=== PATIENT | male | born 1960 | race Caucasian/White ===

== ENCOUNTER 2017-08-11 01:18 | Emergency (ER) | payer OTHER ==
[2017-08-11] MEDS ORDERED: NS 1,000 ML IV ONE (01:22)
[2017-08-11] MEDS ORDERED: ONDANSETRON 4 MG/2 ML VIAL IVP ONE (01:22)
[2017-08-11] MEDS ORDERED: HYDROmorphONE/DILAUDID 2 MG/ML INJ IVP ONE ×2 (01:22→03:26)
--- NOTE | 2017-08-11 01:27 | EDPHY ---
H & P Stated Complaint: lower back pain Time Seen by Provider: 08/11/17 01:24 HPI/ROS: HPI CHIEF COMPLAINT: Low back pain. Radiating down right leg. HISTORY OF PRESENT ILLNESS: Patient 56-year-old male, history of hypertension, obesity, diabetes, [id number], as well as chronic low back pain, presents emergency room with low back pain that radiates down his right leg. This been progressively getting worse over the past 8 days. Patient reports to me that he has had increasing pain for the past 8 days the pain as sharp stabbing radiates down his right leg. Worse when he walks. He denies any saddle anesthesia denies focal numbness or tingling, denies fever. Denies history of trauma. States his pain is been increasing for the past 8 days. He did see [facility] and had an MRI on Thursday but is unsure the results of this. He cannot tolerate the pain and states the pain got worse around midnight. He was transported by EMS here he was given 200 mcg IV fentanyl in route. Which improved his pain from 10/10 to currently 8/10. Denies any significant trauma. Past Medical History: Hypertension, jxo-[id number] diabetes, obesity, chronic back pain Past Surgical History: No significant surgery Social History: Denies daily use of drugs alcohol tobacco. Resides here locally. Family History: Noncontributory ROS REVIEW OF SYSTEMS: A comprehensive 10 point review of systems is otherwise negative aside from elements mentioned in the history of present illness. Exam Constitutional triage nursing summary reviewed, vital signs reviewed, awake/ alert. Eyes normal conjunctivae and sclera, EOMI, PERRLA. HENT normal inspection, atraumatic, moist mucus membranes, no epistaxis, neck supple/ no meningismus, no raccoon eyes. Respiratory clear to auscultation bilaterally, normal breath sounds, no respiratory distress, no wheezing. Cardiovascular rate normal, regular rhythm, no murmur, no edema, distal pulses normal. Gastrointestinal soft, non-tender, no rebound, no guarding, normal bowel sounds, no distension, no pulsatile mass. Genitourinary no CVA tenderness. Musculoskeletal no significant midline lumbar pain, no midline vertebral tenderness, full range of motion, no calf swelling, no tenderness of extremities , no meningismus, good pulses, neurovascularly intact. He does have some mild pain with straight leg raise. Negative for crossed straight leg raise. Skin pink, warm, & dry, no rash, skin atraumatic. Neurologic awake, alert and oriented x 3, AAOx3, moves all 4 extremities equally, motor intact, sensory intact, CN II-XII intact, normal cerebellar, normal vision, normal speech. Psychiatric normal mood/affect. Heme/Lymph/Immune no lymphadenopathy. Differential Diagnosis: Includes but is not limited to in a particular order sciatica, nerve root compression, annular tear, compression fracture, degenerative disc disease, malalignment, doubt acute spinal epidural abscess. Medical Decision Making: Plan for this patient lumbar spine x-ray, IV pain medicine with IV Dilaudid 0.5 mg IV, 4 mg IV Zofran for nausea, basic blood work and fluid. Re-evaluate. Re-evaluation: X-ray lumbar spine shows degenerative disc disease. No acute malalignment or significant compression fracture. 0327: Patient re-evaluate he still complaining of back pain it is slightly improved but still rather significant the pain shoots down his right leg. I talked him about re-medication including Dilaudid, Toradol, Decadron. He would like to do this. We discussed possible admission for intractable back pain. Versus going home. He would like to see if his pain can be better controlled here before making that decision. 0528: Patient re-evaluated resting comfortably in no acute distress. He is feeling much better after IV Toradol Decadron and Dilaudid. He was able to ambulate well to the bathroom with a steady gait and no significant back pain. He states his back pain greatly improved. Patient requesting discharge home. He does report to me that he has a follow-up appoint with his orthopedic doctor today at 11:00 a.m. To review his outside MRI. I will prescribe him a very limited supply of [place] so that he is comfortable today. He should follow up with his orthopedic surgeon take it easy. We discussed return precautions as well. He understands return emergency room if develops any worsening pain questions or concerns. Source: Patient, EMS - Personal History Current Tetanus/Diphtheria Vaccine: Yes - Medical/Surgical History Hx Asthma: No Hx Chronic Respiratory Disease: No Hx Diabetes: No Hx Cardiac Disease: No Hx Renal Disease: No Hx Cirrhosis: No Hx Alcoholism: No Hx HIV/AIDS: No Hx Splenectomy or Spleen Trauma: No Other PMH: HTN, DM2 - Social History Smoking Status: Never smoked Constitutional: Initial Vital Signs Temperature (C) 36.6 C 08/11/17 01:21 Heart Rate 74 08/11/17 01:21 Respiratory Rate 20 08/11/17 01:21 Blood Pressure 177/121 H 08/11/17 01:21 O2 Sat (%) 92 08/11/17 01:21 O2 Delivery Mode Nasal Cannula O2 (L/minute) 2 Allergies/Adverse Reactions: No Known Allergies Allergy (Unverified 08/11/17 01:23) Home Medications: Medication Instructions Recorded Hydrocodone-Acetamin 5-325 mg 08/11/17 Hydrocodone/APAP 5/325 [[place] 1 - 2 tab PO Q4H PRN #10 tab 08/11/17 5/325] Lisinopril 08/11/17 Metformin HCl 08/11/17 predniSONE 08/11/17 Medical Decision Making - Data Points Laboratory Results: Laboratory Results 08/11/17 01:39 08/11/17 01:39 08/11/17 08/11/17 08/11/17 02:52 02:31 01:39 WBC RBC Hgb Hct MCV MCH MCHC RDW Plt Count MPV Neut % (Auto) Lymph % (Auto) [place] % (Auto) Eos % (Auto) Baso % (Auto) Nucleat RBC Rel Count Absolute Neuts (auto) Absolute Lymphs (auto) Absolute Monos (auto) Absolute Eos (auto) Absolute Basos (auto) Absolute Nucleated RBC Immature Gran % Immature Gran # PT 14.3 SEC SEC REJ (12.0-15.0) INR 1.09 REJ (0.83-1.16) APTT 20.2 SEC L SEC REJ (23.0-38.0) Sodium Potassium Chloride Carbon Dioxide Anion Gap BUN Creatinine Estimated GFR Glucose Calcium Urine Color YELLOW Urine Appearance HAZY Urine pH 5.0 (5.0-7.5) Ur Specific [place] 1.033 H (1.002-1.030) Urine Protein NEGATIVE (NEGATIVE) Urine Ketones TRACE H (NEGATIVE) Urine Blood NEGATIVE (NEGATIVE) Urine Nitrate NEGATIVE (NEGATIVE) Urine Bilirubin NEGATIVE (NEGATIVE) Urine Urobilinogen NEGATIVE EU EU (0.2-1.0) Ur Leukocyte Esterase NEGATIVE (NEGATIVE) Urine RBC 1-3 /hpf /hpf (0-3) Urine WBC 3-5 /hpf H /hpf (0-3) Ur Epithelial Cells TRACE /lpf /lpf (NONE-1+) Hyaline Casts 1-5 /lpf /lpf (0-1) Urine Mucus 4+ /lpf H /lpf (NONE-1+) Urine Glucose 1+ H (NEGATIVE) 08/11/17 08/11/17 01:39 01:39 WBC 12.09 10^3/uL H 10^3/uL (3.80-9.50) RBC 5.38 10^6/uL 10^6/uL (4.40-6.38) Hgb 17.6 g/dL H g/dL (13.7-17.5) Hct 49.4 % % (40.0-51.0) MCV 91.8 fL fL (81.5-99.8) MCH 32.7 pg pg (27.9-34.1) MCHC 35.6 g/dL g/dL (32.4-36.7) RDW 12.0 % % (11.5-15.2) Plt Count 166 10^3/uL 10^3/uL (150-400) MPV 10.3 fL fL (8.7-11.7) Neut % (Auto) 52.8 % % (39.3-74.2) Lymph % (Auto) 35.2 % % (15.0-45.0) [place] % (Auto) 8.5 % % (4.5-13.0) Eos % (Auto) 0.9 % % (0.6-7.6) Baso % (Auto) 0.7 % % (0.3-1.7) Nucleat RBC Rel Count 0.0 % % (0.0-0.2) Absolute Neuts (auto) 6.39 10^3/uL 10^3/uL (1.70-6.50) Absolute Lymphs (auto) 4.25 10^3/uL H 10^3/uL (1.00-3.00) Absolute Monos (auto) 1.03 10^3/uL H 10^3/uL (0.30-0.80) Absolute Eos (auto) 0.11 10^3/uL 10^3/uL (0.03-0.40) Absolute Basos (auto) 0.08 10^3/uL 10^3/uL (0.02-0.10) Absolute Nucleated RBC 0.00 10^3/uL 10^3/uL (0-0.01) Immature Gran % 1.9 % H % (0.0-1.1) Immature Gran # 0.23 10^3/uL H 10^3/uL (0.00-0.10) PT INR APTT Sodium 144 mEq/L mEq/L (135-145) Potassium 4.1 mEq/L mEq/L (3.3-5.0) Chloride 108 mEq/L mEq/L (97-110) Carbon Dioxide 21 mEq/l L mEq/l (22-31) Anion Gap 15 mEq/L mEq/L (8-16) BUN 37 mg/dL H mg/dL (7-23) Creatinine 0.8 mg/dL mg/dL (0.7-1.3) Estimated GFR > 60 Glucose 152 mg/dL H mg/dL (70-100) Calcium 9.6 mg/dL mg/dL (8.5-10.4) Urine Color Urine Appearance Urine pH Ur Specific [place] Urine Protein Urine Ketones Urine Blood Urine Nitrate Urine Bilirubin Urine Urobilinogen Ur Leukocyte Esterase Urine RBC Urine WBC Ur Epithelial Cells Hyaline Casts Urine Mucus Urine Glucose Medications Given: Discontinued Medications Dexamethasone (Decadron Injection) 10 mg IVP EDNOW ONE Stop: 08/11/17 03:27 Last Admin: 08/11/17 03:29 Dose: 10 mg Hydromorphone HCl (Dilaudid) 0.5 mg IVP EDNOW ONE Stop: 08/11/17 01:23 Last Admin: 08/11/17 01:37 Dose: 0.5 mg Hydromorphone HCl (Dilaudid) 0.5 mg IVP EDNOW ONE Stop: 08/11/17 03:27 Last Admin: 08/11/17 03:29 Dose: 0.5 mg Sodium Chloride (Ns) 1,000 mls @ 0 mls/hr IV EDNOW ONE; Wide Open PRN Reason: Protocol Stop: 08/11/17 01:23 Last Admin: 08/11/17 01:37 Dose: 1,000 mls Ketorolac Tromethamine (Toradol) 15 mg IVP EDNOW ONE Stop: 08/11/17 03:27 Last Admin: 08/11/17 03:29 Dose: 15 mg Ondansetron HCl (Zofran) 4 mg IVP EDNOW ONE Stop: 08/11/17 01:23 Last Admin: 08/11/17 01:37 Dose: 4 mg Departure - Departure Disposition: Home, Routine, Self-Care Clinical Impression: Lumbar radiculopathy Condition: Good Instructions: Acute Low Back Pain (ED), Lumbar Radiculopathy (ED) Additional Instructions: 1. Continue your prednisone. 2. [place] for severe pain. 3. Anti-inflammatory pain medicine for mild pain. 4. Follow up with you're orthopedic doctor. 5. Return emergency room if there is worsening pain questions or concerns. Referrals: Keiko Alarcon MD [Primary Care Provider] - As per Instructions Prescriptions: Hydrocodone/APAP 5/325 [[place] 5/325] 1 - 2 tab PO Q4H PRN #10 tab PRN Reason: Pain, Moderate
[2017-08-11] MEDS ORDERED: HYDROmorphONE/DILAUDID 1 MG/ML INJ ONE (01:29)
[2017-08-11 01:53] LABS: PLATELET COUNT 166 10^3/uL (150-400)
[2017-08-11 02:50] LABS: INR 1.09 (0.83-1.16); PROTIME(PATIENT) 14.3 SEC (12.0-15.0)
[2017-08-11] MEDS ORDERED: DEXAMETHASONE 10 MG/ML VIAL IVP ONE (03:26)
[2017-08-11] MEDS ORDERED: KETOROLAC 15 MG/1 ML SDV IVP ONE (03:26)
[2017-08-11 05:24] VITALS: BP 113/75
== END 2017-08-11 05:37 | disposition home or self-care (01) ==
LOC: EDUNIT#
DX: M54.16 Radiculopathy, lumbar region (principal); I10 Essential (primary) hypertension; E11.9 Type 2 diabetes mellitus without complications; E86.9 Volume depletion, unspecified; Z79.84 Long term (current) use of oral hypoglycemic drugs
CPT/HCPCS: 96374; J1100; J1170; J1885; J2405

== ENCOUNTER → 2017-12-02 | Outpatient (CLI) | payer OTHER ==
[~2017-12-02] MED LIST: IOPAMIDOL (ISOVUE-300) 100 ML BTL ONE
== END ==
LOC: FIMAGING 10:05
PROVIDERS: ATTEND Dermatology
DX: Z12.89 Encounter for screening for malignant neoplasm of other sites (principal)
CPT/HCPCS: 82565-PO; Q9967

== ENCOUNTER 2017-12-11 09:54 | Day surgery (SDC) | payer OTHER ==
[2017-12-11] MEDS ORDERED: LR 1,000 ML IV ONE (10:06)
--- NOTE | 2017-12-11 11:19 | POSTANESTH ---
Post Anesthetic Evaluation Cardiovascular Status: Normal, Stable Respiratory Status: Normal, Stable Level of Consciousness/Mental Status: Can Participate in Eval, Alert and Oriented Pain Control: Adequate, Prn Tx Ordered Nausea/Vomiting Control: Adequate, Prn Tx Ordered Complications Possibly Related to Anesthesia: None Noted Notes: LE still immobile secondary to SAB.
--- NOTE | 2017-12-11 11:23 | PDANEPAE ---
ANE History of Present Illness 57 yo male with multi medical problems presents with L leg melanoma for wide excision and sentinel LN biopsy. ANE Past Medical History - Cardiovascular History Hx Hypertension: Yes Hx Arrhythmias: No Hx Chest Pain: No Hx Coronary Artery / Peripheral Vascular Disease: No Hx CHF / Valvular Disease: No Hx Palpitations: No - Pulmonary History Hx COPD: No Hx Asthma/Reactive Airway Disease: No Hx Recent Upper Respiratory Infection: No Hx Oxygen in Use at Home: No Hx Sleep Apnea: Yes Sleep Apnea Screening Result - Last Documented: Positive Pulmonary History Comment: GISELA USES C-PAP - Neurologic History Hx Cerebrovascular Accident: No Hx Seizures: No Hx Dementia: No - Endocrine History Hx Diabetes: Yes Hypothyroid: No Hyperthyroid: No Obesity: moderate Endocrine History Comment: NIDDM - Renal History Hx Renal Disorders: No - Liver History Hx Hepatic Disorders: Yes Hepatic History Comment: HX OF FATTY LIVER - Neurological & Psychiatric Hx Hx Neurological and Psychiatric Disorders: Yes Neurological / Psychiatric History Comment: DEPRESSION - Cancer History Hx Cancer: Yes Cancer History Comment: MELANOMA - Congenital Disorder History Hx Congenital Disorders: No - GI History Hx Gastrointestinal Disorders: Yes Gastrointestinal History Comment: INTERMITTENT HEARTBURN RELATED TO ACID FOODS WILL USE TUMS - Other Health History Other Health History: NEG - Chronic Pain History Chronic Pain: Yes (LOWER BACK) - Surgical History Prior Surgeries: RT KNEE SCOPE. REMVL MELANOMA. TONSILLECTOMY ANE Review of Systems Review of systems is: negative Review of Systems: - Exercise capacity METS (RN): 4 METS ANE Patient History - Allergies Allergies/Adverse Reactions: No Known Allergies Allergy (Unverified 08/11/17 01:23) - Home Medications Home Medications: Lisinopril DAILY 08/11/17 [Last Taken Unknown] Metformin HCl DAILY 08/11/17 [Last Taken Unknown] Amlodipine Besylate DAILY 12/08/17 [Last Taken Unknown] buPROPion DAILY 12/08/17 [Last Taken Unknown] - NPO status NPO Since - Liquids (Date): 12/11/17 NPO Since - Liquids (Time): 07:00 (2 coffees, no cream) NPO Since - Solids (Date): 12/11/17 NPO Since - Solids (Time): 07:00 (gluten-free toast) - Anes Hx Anes Hx: no prior problems - Smoking Hx Smoking Status: Never smoked Marijuana use: Yes - Alcohol Use Alcohol Use: Rarely - Family Anes Hx Family Anes Hx: neg - N/A Family Hx Anesthesia Complications: NEG ANE Labs/Vital Signs - Labs - BMP Glucose: 131 - Vital Signs Vital Signs: reviewed preoperatively; see RN documention for details Height: 187.96 cm Weight: 124.738 kg ANE Physical Exam - Airway Neck exam: FROM Mallampati Score: Class 3 Mouth exam: carpenter - Pulmonary Pulmonary: no respiratory distress - Cardiovascular Cardiovascular: regular rate and rhythym - ASA Status ASA Status: III ANE Anesthesia Plan Anesthesia Plan: general endotracheal anesthesia
[2017-12-11] MEDS ORDERED: CEFAZOLIN 2 GM/DEXTROSE/100 ML BAG IV ONE (12:54)
[2017-12-11] MEDS ORDERED: ceFAZolin 3 GM in D5W 100 ML IV ONE (12:55)
--- NOTE | 2017-12-11 12:55 | PDHPUP ---
History & Physical Update H&P update statement: This history and physical update is based on an assessment of the patient which was completed after admission or registration (within 24 hours), but prior to the surgery/procedure. H&P update: H&P reviewed & patient examined, no change in patient's condition since H&P completed
[2017-12-11] MEDS ORDERED: CEFAZOLIN 1 GM/DEXTROSE/50 ML BAG IV ONE (13:00)
[2017-12-11] MEDS ORDERED: LIDO/EPI 2%** Not for Epidural 20 ML MDV ONE (13:03)
[2017-12-11] MEDS ORDERED: EPINEPHrine 1 MG/ML INJ ONE ×2 (13:03→13:37)
[2017-12-11] MEDS ORDERED: MINERAL OIL 10 ML VIAL ONE (13:03)
[2017-12-11] MEDS ORDERED: LIDOCAINE 1% 300 MG/30 ML SDV ONE (13:13)
[2017-12-11] MEDS ORDERED: MIDAZOLAM 2 MG/2 ML VIAL IVP ONE (13:19)
[2017-12-11] MEDS ORDERED: BUPIVACAINE/DEXTROSE 7.5MG/ML 2 ML SPINAL AMP SP ONE (13:25)
[2017-12-11] MEDS ORDERED: LIDOCAINE 2% 5 ML SDV ONE (13:25)
[2017-12-11] MEDS ORDERED: fentaNYL 100 MCG/2 ML INJ ONE ×2 (13:25)
[2017-12-11] MEDS ORDERED: BUPIVACAINE 0.25% 30 ML SDV ONE (14:09)
[2017-12-11] MEDS ORDERED: fentaNYL 100 MCG/2 ML INJ IVP PRN (15:13)
[2017-12-11] MEDS ORDERED: ONDANSETRON 4 MG/2 ML VIAL IVP PRN (15:13)
[2017-12-11] MEDS ORDERED: HYDROCODONE/APAP 5/325 TAB PO PRN (15:13)
[2017-12-11] MEDS ORDERED: ACETAMINOPHEN 500 MG TAB PO PRN (15:13)
[2017-12-11] MEDS ORDERED: LR 500 ML IV PRN (15:13)
[2017-12-11] MEDS ORDERED: NALOXONE HCL 0.4 MG/ML INJ IVP PRN (15:13)
[2017-12-11] MEDS ORDERED: OXYCODONE/APAP 5/325 TAB PO PRN (15:22)
--- NOTE | 2017-12-11 15:22 | POSTOPPROG ---
Post Op Note Date of Operation: 12/11/17 Surgeon: Walt Sanderson (, FACS) Waiter/Waitress Counter: Susannah Neumann PA-C Anesthesiologist: Felisha Muñoz DO Anesthesia: Spinal Pre-op Diagnosis: melanoma left inner thigh Procedure: wide excision melanoma/adjacent tissue transfer, SLN mapping/ inguinal LN bx Findings: 2/2 sentinel nodes negative Inf/Abcess present in the surg proc area at time of surgery?: No
[2017-12-11] MEDS ORDERED: ONDANSETRON 4 MG/2 ML VIAL ONE (17:13)
[2017-12-11 17:47] VITALS: BP 120/79
--- NOTE | 2017-12-12 06:03 | GOP ---
DATE OF OPERATION: SURGEON: Walt Sanderson MD, FACS CONTINUITY TESTER: Susannah Neumann PA-C ANESTHESIA: Spinal. ANESTHESIOLOGIST: Felisha Odell MD PREOPERATIVE DIAGNOSIS: Left lower extremity melanoma. POSTOPERATIVE DIAGNOSIS: Left lower extremity melanoma. PROCEDURE PERFORMED: 1. Wide excision of left lower extremity melanoma with primary closure and adjacent tissue transfer. 2. [place] lymph node mapping and excisional biopsy of inguinal lymph node x2. FINDINGS: 2 out of 2 sentinel nodes negative for evidence of metastatic malignancy by frozen section, Dr. Don Lubin. Permanent section pending. Wide excision, 2 cm margins circumferentially excised and submitted for permanent section. ESTIMATED BLOOD LOSS: 25 mL. DESCRIPTION OF PROCEDURE: After informed consent was obtained, the patient was brought to the operating room and placed under spinal anesthesia. The left thigh and groin and lower abdomen were prepped and draped in usual fashion. Before proceeding, a time-out identification of the patient was performed. The patient had undergone sentinel lymph node injection and visualized sentinel nodes in the inguinal region. The [place] was brought onto the field, and the point of maximal intensity noted to be approximately 2 cm below the inguinal crease and directly over the femoral vessels. The planned incision site was infiltrated with 0.25% Marcaine, and incised obliquely in the direction of the inguinal crease and approximately 2 cm below the inguinal crease. Dissecting through Najma's fascia, the nodes came into view and were palpable. These were 2 separate nodes that had the highest concentration of detected gamma radiation. The nodes were removed en bloc. Lymphovascular structures were hemoclipped and divided. One larger vein was clamped, divided, and ligated with 3-0 Vicryl ligatures. After the specimens were removed from the field, they were inspected and noted to be not suspicious clinically. These were submitted for frozen section. While we were waiting for the results of the frozen section, we performed a wide excision on the melanoma site, which was on the inner distal thigh. The skin was marked with a marking pen and incised circumferentially 2 cm from the excision site. The specimen was dissected through the skin and subcutaneous tissues, and then from the deep underlying subcutaneous fat with cautery. Subcutaneous veins were hemoclipped and divided as needed for hemostasis. The specimen was removed from the field and tagged for orientation with a short suture on the superior margin and a long suture on the anterior margin. The skin edges were undermined approximately 3 cm in all directions. The adjacent tissue transfer was approximated with interrupted 2-0 Vicryl sutures in the deep subcutaneous plane. Subcutaneous tissues were approximated with continuous running 3-0 Vicryl suture, and the skin was closed with interrupted 3-0 Prolene sutures. We subsequently received the results of the frozen section, which showed no evidence of metastatic malignancy in 2/2 inguinal nodes submitted. The operative field in the groin appeared hemostatic, and this was closed with 3-0 Monocryl suture for the deep subcutaneous tissues and 4-0 Monocryl suture in a subcuticular fashion for the skin. Topical Dermabond was applied to the inguinal incision. The excision site was covered with Xeroform gauze, 4 x 4's, and Tegaderm. The patient was returned to the recovery room, extubated, in satisfactory condition. Needle, sponge, and instrument count were correct. COMPLICATIONS: None. /[id number]/MODL MTDD
== END 2017-12-11 18:18 | disposition home or self-care (01) ==
LOC: FSGY 09:54
PROVIDERS: ATTEND Surgery
DX: C43.72 Malignant melanoma of left lower limb, including hip (principal); D36.0 Benign neoplasm of lymph nodes; G47.33 Obstructive sleep apnea (adult) (pediatric); E11.9 Type 2 diabetes mellitus without complications; F32.9 Major depressive disorder, single episode, unspecified; I10 Essential (primary) hypertension; Z79.84 Long term (current) use of oral hypoglycemic drugs
CPT/HCPCS: 14021; 38500; 78195; A9520; J0171; J0690; J2250; J2405; J3010